=== PATIENT | female | born 1960 | race Caucasian/White ===

== ENCOUNTER 2016-10-26 10:06 | Emergency (ER) | payer MEDICAID ==
[~2016-10-26] VITALS: Ht 162.6 cm; Wt 108.9 kg
[2016-10-26] MEDS ORDERED: TRIA1CAP2 PO (10:25)
[2016-10-26] MEDS ORDERED: BUPR200T31 PO (10:25)
[2016-10-26] MEDS ORDERED: SIMVASTATIN (10:25)
[2016-10-26] MEDS ORDERED: BENA10TA2 PO (10:25)
[2016-10-26] MEDS: AMOXICILLIN-CLAVUL 875-125MG TABLET PO ONE (11:34)
[2016-10-26] MEDS: predniSONE 20 MG TABLET PO ONE (11:34)
[2016-10-26] MEDS ORDERED: predniSONE 50 MG TABLET ONE (11:39)
[2016-10-26] MEDS ORDERED: AMOXICILLIN-CLAVUL 875-125MG TABLET ONE (11:39)
[2016-10-26] MEDS ORDERED: predniSONE 10 MG TABLET ONE (11:39)
--- NOTE | 2016-10-26 12:51 | NUR ---
pt was evaluated by dr Schulz. pt was d/c to home. d/c instructions given to the pt.
[2016-10-26 12:52] VITALS: BP 124/81
== END 2016-10-26 12:53 | disposition home or self-care (01) ==
LOC: ER 10:06
DX: J32.4 Chronic pansinusitis (principal); I10 Essential (primary) hypertension; E78.5 Hyperlipidemia, unspecified; E11.9 Type 2 diabetes mellitus without complications
CPT/HCPCS: 70486; 71010; 99284; A4663; J7512 ×2

== ENCOUNTER 2016-11-01 09:39 | Emergency (ER) | payer MEDICAID ==
[~2016-11-01] VITALS: Ht 170.2 cm; Wt 83.9 kg
[~2016-11-01 09:39] MED LIST: BENA10TA2 PO; BUPR200T31 PO; SIMVASTATIN; TRIA1CAP2 PO
--- NOTE | 2016-11-01 10:55 | NUR ---
Patient is resting comfortably on gurney,NAD, respiration:easy, pending MD evaluation
[2016-11-01] MEDS ORDERED: IV NORMAL SALINE 1000 ML BAG IV ONE (11:45)
[2016-11-01 11:54] LABS: *BILIRUBIN,URIN NEGATIVE (NEGATIVE); *BLOOD, URINE NEGATIVE (NEGATIVE); *CLARITY,URINE CLEAR (CLEAR); *COLOR,URINE LIGHT YELLOW (YELLOW); *KETONES,URINE NEGATIVE (NEGATIVE); *PROTEIN,URINE NEGATIVE (NEGATIVE); *UROBILINOGEN,URINE 0.2 E.U./dl (NORMAL); LEUKOCYTE ESTERASE ,URINE NEGATIVE (NEGATIVE); NITRITE, URINE NEGATIVE (NEGATIVE); PH,URINE 5.5 (5.0-8.0); UGLUCOSE NEGATIVE (NEGATIVE)
[2016-11-01 12:08] LABS: BASOPHILS # (AUTO) 0.1 K/uL (0.0-0.2); BASOPHILS % (AUTO) 0.8 % (0.0-2.0); EOSINOPHILS # (AUTO) 0.2 K/uL (0.0-0.7); EOSINOPHILS % (AUTO) 2.6 % (0.0-7.0); HEMATOCRIT 42.3 % (37.0-47.0); LYMPHOCYTES # (AUTO) 3.6 K/uL (0.8-4.8); LYMPHOCYTES % (AUTO) 39.3 % (20.5-51.5); MEAN CORPUSCULAR HGB CONC 33 g/dL (32.0-37.0); MEAN CORPUSCULAR VOLUME 90.3 fL (81.0-99.0); MONOCYTES # (AUTO) 0.5 K/uL (0.1-1.30); MONOCYTES % (AUTO) 4.9 % (0.0-11.0); NEUTROPHILS # (AUTO) 4.8 K/uL (1.8-8.9); NEUTROPHILS % (AUTO) 52.4 % (38.5-71.5); PLATELET COUNT (AUTO) 192 K/uL (150-450); RED BLOOD CELL COUNT(AUTO) 4.68 MIL/uL (4.20-5.40); RED CELL DISTRIBUTION WIDTH 13.3 % (11.5-14.5); WHITE BLOOD COUNT (AUTO) 9.2 K/uL (4.0-11.2)
[2016-11-01 12:18] LABS: TROPONIN I < 0.017 ng/mL (0.00-0.056)
--- NOTE | 2016-11-01 12:18 | NUR ---
Patient is using her cellphone, NAD, calm
[2016-11-01 12:19] LABS: CALCIUM 9.6 mg/dL (8.5-10.1); CREATININE 0.9 mg/dL (0.6-1.3); POTASSIUM 4.2 mmol/L (3.5-5.1)
[2016-11-01 12:24] LABS: ALBUMIN 3.4 g/dL (3.4-5.0); BILIRUBIN,DIRECT 0.1 mg/dL (0.0-0.2); BILIRUBIN,TOTAL 0.6 mg/dL (0.2-1.0); TOTAL PROTEIN, SERUM 7.7 g/dL (6.4-8.2)
[2016-11-01 12:28] LABS: LACTIC ACID 0.7 mmol/L (0.4-2.0)
[2016-11-01 12:31] LABS: BACTERIA,URINE NONE SEEN /HPF (NONE SEEN); RBC,URINE 0-3 /HPF (0-3); SQUAMOUS EPITHELIAL CELL,UR FEW /HPF (NONE SEEN); WBC,URINE 0-3 /HPF (0-3)
--- NOTE | 2016-11-01 12:44 | NUR ---
Pt ambulatory to street to move car.
--- NOTE | 2016-11-01 13:06 | NUR ---
IV removed. Catheter intact and site benign. Pressure and 4x4 gauze applied to site. No bleeding noted. Patient discharged to home in stable conditon. Written and verbal after care instructions given to patient. Patient verbalizes understanding of instructions.
== END 2016-11-01 13:16 | disposition home or self-care (01) ==
LOC: ER 09:39
DX: J32.4 Chronic pansinusitis (principal); I10 Essential (primary) hypertension
CPT/HCPCS: 36415; 71010; 80048; 80076; 81001; 83605; 84484; 85025; 85730; 87040 ×2; 87086; 87400; 93005; 96360; 99285; A4663; 70030-TC; J7030

== ENCOUNTER 2017-02-10 07:13 | Emergency (ER) | payer MEDICAID, OTHER ==
[~2017-02-10] VITALS: Ht 162.6 cm; Wt 112.0 kg
[2017-02-10] MEDS ORDERED: SULF1TAB48 PO (07:30)
[2017-02-10] MEDS ORDERED: METF500T4 PO (07:30)
[2017-02-10] MEDS: LIDOCAINE 1%-EPI 1:100,000 20 ML VIAL TP ONE (09:00)
--- NOTE | 2017-02-10 11:06 | NUR ---
Patient discharged to home in stable conditon. Written and verbal after care instructions given. Patient verbalizes understanding of instructions.
== END 2017-02-10 11:06 | disposition home or self-care (01) ==
LOC: ER 07:13
DX: L02.416 Cutaneous abscess of left lower limb (principal); I10 Essential (primary) hypertension; E11.9 Type 2 diabetes mellitus without complications; Z90.710 Acquired absence of both cervix and uterus
CPT/HCPCS: A4663; J3490